=== PATIENT | male | born 1965 | race Two or more races ===

== ENCOUNTER 2018-05-04 07:55 | Emergency (ER) | payer MEDICAID ==
[~2018-05-04] VITALS: Ht 182.9 cm; Wt 119.7 kg
[2018-05-04 08:07] VITALS: BP 143/95; Ht 182.9 cm; Wt 119.7 kg
[2018-05-04 09:07] LABS: BASOPHIL % 0.7 % (0-2); PLATELET COUNT 166 x10^3mcL (130-400); RED CELL DISTRIBUTION WIDTH 13.4 % (11.5-14.5)
[2018-05-04 09:40] LABS: CALCIUM 9.1 mg/dL (8.5-10.1); CHLORIDE SERUM 105 mmol/L (98-107); CREATININE SERUM 0.8 mg/dL (0.7-1.3); GFR1 > 60 mL/min; GLUCOSE SERUM 145 mg/dL (74-106); POTASSIUM SERUM 3.9 mmol/L (3.5-5.1); SODIUM SERUM 138 mmol/L (136-145)
[2018-05-04 10:12] LABS: ALBUMIN 3.5 g/dL (3.4-5.0); AST/SGOT 78 U/L (15-37); BILIRUBIN TOTAL 0.4 mg/dL (0.20-1.00); TOTAL PROTEIN, SERUM 7.3 g/dL (6.4-8.2)
[2018-05-04 10:13] LABS: ALKALINE PHOSPHATASE 92 U/L (46-116); ALT/SGPT 252 U/L (16-63); LIPASE 424 IU/L (73-393)
== END 2018-05-04 10:25 | disposition home or self-care (01) ==
LOC: ED 07:55
PROVIDERS: Specialist
DX: M79.10 Myalgia, unspecified site (principal)
CPT/HCPCS: 36415; 87804; J1885